=== PATIENT | female | born 1985 | race Caucasian/White ===

== ENCOUNTER 2022-08-13 14:06 | Emergency (ER) | payer MEDICAID, SELFPAY ==
[2022-08-13 14:10] VITALS: BP 144/80; PULSE 85; RESP 19; TEMP 37.1; O2SAT 99
--- NOTE | 2022-08-13 14:19 | W.ED.GENAD ---
Discharge Plan Disposition Patient Disposition: Home Discharge Details Clinical Impression: Pneumonia Primary Care Provider: None,None ED Provider: Tayo Amaro Home Meds and New Rx's Prescriptions: New doxycycline hyclate 100 mg capsule 100 mg PO BID Qty: 10 0RF benzonatate 200 mg capsule 200 mg PO TID PRN (Reason: cough) Qty: 30 0RF albuterol sulfate [ProAir HFA] 90 mcg/actuation HFA aerosol inhaler 2 puff inhalation Q6H PRN (Reason: shortness of breath or wheezing) Qty: 6.7 0RF Discharge Instructions Instructions: Pneumonia (ED) Additional Instructions: Please get plenty of rest and stay well-hydrated during illness. Take antibiotic as prescribed and for the full course of medication. If not improving in the next week follow-up with your primary care provider for reassessment otherwise return to the emergency department for any new or significant worsening of symptoms. Referrals: Primary Care Provider [Outside] - 1 week (If not improving) Discharge Data Discharge Date/Time-TO BE ENTERED AT DEPARTURE: 08/13/22 14:29 Medical Decision Making Patient presenting to the emergency department for chief complaint of cough. She states she has had a cold for the past 2 weeks and thought she had some slight improvement but now significantly has worsened with more malaise, stating cough feels more wet, and having some chest tightness with coughing episodes. Physical exam shows mild expiratory wheeze and crackles in the right lower lung, otherwise lung butler are clear, normal HEENT exam, no tachycardia or hypoxia or fever noted. I am concerned for pneumonia versus bronchitis. Given worsening symptoms and focal lung findings will place patient on antibiotic along with albuterol and Tessalon Perles. After discussion of diagnosis and plan of care patient has no further needs, questions, or concerns and states clear understanding to return to the emergency department for any worsening symptoms. This documentation was generated using [employer] dictation system, please disregard any oddities of phrase or misspellings. HPI General Mode of arrival: ambulatory. Date/Time Provider Initiated Documentation: 08/13/22 14:18. Limitations to Documentation: no limitations. Information obtained by: patient and RN notes reviewed. History of Present Illness 37 year old F presents to the emergency department with the chief complaint of cough chest tightness, described as moderate, with intensity rated at 6. Quality is described as aching, and is localized to the chest. Patient reports no radiation. Patient started experiencing this week(s) (2) and it has been constant. No relieving factors improve symptom(s), Other factors that worsen symptoms . Patient did receive the following treatments prior to arrival, other (otc meds ) Related Data Home Medications Medication Instructions Recorded Confirmed albuterol sulfate 90 mcg/actuation 2 puff inhalation Q6H PRN 08/13/22 aerosol inhaler (ProAir HFA) shortness of breath or wheezing #6.7 grams benzonatate 200 mg capsule 200 mg PO TID PRN cough #30 caps 08/13/22 doxycycline hyclate 100 mg capsule 100 mg PO BID #10 caps 08/13/22 Previous Rx's Medication Instructions Recorded albuterol sulfate 90 mcg/actuation 2 puff inhalation Q6H PRN 08/13/22 aerosol inhaler (ProAir HFA) shortness of breath or wheezing #6.7 grams benzonatate 200 mg capsule 200 mg PO TID PRN cough #30 caps 08/13/22 doxycycline hyclate 100 mg capsule 100 mg PO BID #10 caps 08/13/22 Allergies Allergy/AdvReac Type Severity Reaction Status Date / Time No Known Allergies Allergy Unverified 08/13/22 14:17 General Stated Complaint: RespSymp SAE: 4 Review of Systems Constitutional Constitutional: Denies chills, Denies fever(s) and Reports malaise ENT Ears, Nose, Mouth, and Throat: Reports nasal congestion and Denies sore throat Cardiovascular Cardiovascular: Denies chest pain and Reports dyspnea (Only with coughing) Respiratory Respiratory: Reports as per HPI, Reports cough, Reports pain with cough and Reports dyspnea (Only with coughing) Gastrointestinal Gastrointestinal: Denies abdominal pain, Reports nausea and Denies vomiting PFSH All Active Problems Pneumonia (Acute) Social History Smoking/Tobacco Use Status: Never Smoking risk assessment performed?: Yes Alcohol Intake: never Drug use: Never Substance use type: does not use Do you feel safe at home: Yes Do you feel safe in your relationship?: Yes Exam Const General: cooperative, comfortable and no acute distress Orientation: alert and awake [facility] Head: normal to inspection, normocephalic and atraumatic Ears: hearing grossly normal bilaterally and TM's normal bilaterally General nose exam: external nose normal Face and sinus: no erythema Mouth: oral mucosae normal, no drooling, no muffled voice and no trismus Throat: posterior oropharynx normal Neck Neck: normal visual inspection, full ROM, no lymphadenopathy, no meningeal signs, trachea midline and supple Resp Effort & Inspection: normal respiratory effort, able to speak in complete sentences and cough Quality of cough: dry Auscultation: crackles on the right at the base and wheezes expiratory wheezes and right lower Cardio Rate: regular rate Rhythm: regular rhythm Heart Sounds: S1 normal, S2 normal, normal S1 and S2, no click, no gallops, no murmurs and no rubs Skin General skin exam: no rashes or lesions noted and dry skin (warm) Neuro General: patient alert, patient awake, patient oriented x3, gait normal and moves all extremities Cognition: normal cognition Speech: speech normal Course Vital Signs Vital signs: Vital Signs Temperature 37.1 C 08/13/22 14:10 Pulse 85 08/13/22 14:10 Respiratory Rate 19 08/13/22 14:10 Blood Pressure 144/80 H 08/13/22 14:10 Pulse Oximetry 99 08/13/22 14:10 Temperature 37.1 C 08/13/22 14:10 Temperature Source Oral 08/13/22 14:10 Pulse 85 08/13/22 14:10 Respiratory Rate 19 08/13/22 14:10 Respiratory Effort Normal 08/13/22 14:14 Respiratory Depth Normal 08/13/22 14:14 Blood Pressure 144/80 H 08/13/22 14:10 Blood Pressure Position Sitting 08/13/22 14:10 Pulse Oximetry 99 08/13/22 14:10 Oxygen Delivery Method Room Air 08/13/22 14:10 Oxygen Flow Rate 0 08/13/22 14:10 Pain Level 2 08/13/22 14:10
== END 2022-08-13 14:29 | disposition home or self-care (01) ==
LOC: ER 15:17
PROVIDERS: Emergency Provider Nurse Practitioner Family
DX: J18.9 Pneumonia, unspecified organism (principal)
CPT/HCPCS: 99283